=== PATIENT | male | born 1985 | race Caucasian/White ===

== ENCOUNTER 2017-03-14 08:16 | Emergency (ER) | payer OTHER ==
[2017-03-14 08:37] VITALS: BP 149/87
[2017-03-14] MEDS ORDERED: Sodium Chloride 0.9% 2,000 ML IV STA (08:46)
[2017-03-14] MEDS ORDERED: Ondansetron 4 MG/2 ML SDV IVPUSH ONE (08:46)
[2017-03-14] MEDS ORDERED: Sodium Chloride 0.9% 10 ML Syringe FLUSH PRN (08:46)
[2017-03-14] MEDS ORDERED: HYDROmorphone 0.5 MG/0.5 ML Syringe IVPUSH ONE (08:47)
--- NOTE | 2017-03-14 08:53 | EDM.PDOC ---
ED HPI GI/ABDOMINAL - General Chief Complaint: Gastrointestinal Problem Stated Complaint: VOMITING/POSS FOOD POISONING Time Seen by Provider: 03/14/17 08:29 Source of Information: Reports: Patient History Limitations: Reports: No limitations - History of Present Illness INITIAL COMMENTS - FREE TEXT/NARRATIVE: The patient presents with nausea, vomiting and upper abdominal pain. This all started last night while eating and it has kept him up all night. The pain is in the upper abdomen. He has no diarrhea. He has no fever but he has chills. He denies chest pain and shortness of breath. He has no dysuria. He still has his gallbladder and appendix. He may have eaten some bad food. 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 Denies: out of country travel Associated Symptoms: Reports: fever/chills, loss of appetite, nausea/vomiting. Denies: diarrhea - Related Data Allergies/ADRs: Allergies Allergy/AdvReac Type Severity Reaction Status Date / Time No Known Allergies Allergy Verified 03/14/17 08:31 Home Meds: Home Meds Ondansetron [Zofran ODT] 4 mg PO Q6H PRN #20 tab.dis 03/14/17 [Rx] Past Medical History - Past Health History Medical/Surgical History: Denies Medical/Surgical History - Past Surgical History HEENT Surgical History: Reports: Tonsillectomy Musculoskeletal Surgical History: Reports: Other (see below) Other Musculoskeletal Surgeries/Procedures:: ACL repair Social & Family History - Tobacco Use Smoking Status *Q: Never Smoker - Recreational Drug Use Recreational Drug Use: No ED ROS GENERAL - Review of Systems Review Of Systems: See Below Constitutional: Reports: chills. Denies: fever HEENT: Reports: No symptoms Respiratory: Reports: No Symptoms Cardiovascular: Reports: No symptoms Endocrine: Reports: no symptoms GI/Abdominal: Reports: Abdominal pain, Nausea, Vomiting. Denies: Diarrhea : Reports: no symptoms Musculoskeletal: Reports: no symptoms Skin: Reports: no symptoms ED EXAM, GI/ABD - Physical Exam Exam: See Below Exam Limited By: No limitations General Appearance: alert, no apparent distress Ears: normal external exam Nose: normal inspection Head: atraumatic, normocephalic Neck: normal inspection Respiratory/Chest: no respiratory distress, lungs clear, normal breath sounds Cardiovascular: regular rate, rhythm, no edema, no murmur GI/Abdominal: soft, no organomegaly, no mass, tenderness (Mild to moderate tenderness to the upper abdomen) Extremities: normal inspection Course - Vital Signs Last Recorded V/S: Last Vital Signs Temp 98.5 F 03/14/17 08:31 Pulse 68 03/14/17 08:31 Resp 18 03/14/17 08:31 BP 149/87 H 03/14/17 08:31 Pulse Ox 100 03/14/17 08:31 Orthostatic Blood Pressure [ 171/105 Standing] Orthostatic Blood Pressure [ 149/87 Supine] - Orders/Labs/Meds Orders: Active Orders 24 hr Category Date Time Status Peripheral IV Care [RC] . DIRECTED Care 03/14/17 08:47 Active UA W/MICROSCOPIC [URIN] Stat Lab 03/14/17 08:46 Uncollected Sodium Chloride 0.9% [Saline Flush] Med 03/14/17 08:46 Active 10 ml FLUSH ASDIRECTED PRN ED Antiemetic Medication Reflex [OM.PC] Stat Oth 03/14/17 08:47 Ordered Peripheral IV Insertion Adult [OM.PC] Stat Oth 03/14/17 08:46 Ordered Medication Orders Sodium Chloride (Saline Flush) 10 ml FLUSH ASDIRECTED PRN PRN Reason: Keep Vein Open Last Admin: 03/14/17 09:01 Dose: 10 ml Labs: Laboratory Tests 03/14/17 03/14/17 Range/Units 08:40 08:40 WBC 11.55 H (4.23-9.07) K/mm3 RBC 5.23 (4.63-6.08) M/mm3 Hgb 15.6 (13.7-17.5) gm/L Hct 45.3 (40.1-51.0) % MCV 86.6 (79.0-92.2) fl MCH 29.8 (25.7-32.2) pg MCHC 34.4 (32.2-35.5) g/dl RDW Std Deviation 40.5 (35.1-43.9) fL Plt Count 232 (163-337) K/mm3 MPV 9.2 L (9.4-12.3) fl Neut % (Auto) 89.2 H (34.0-67.9) % Lymph % (Auto) 5.9 L (21.8-53.1) % [place] % (Auto) 4.6 L (5.3-12.2) % Eos % (Auto) 0 L (0.8-7.0) Baso % (Auto) 0.1 (0.1-1.2) % Neut # (Auto) 10.31 H (1.78-5.38) K/mm3 Lymph # (Auto) 0.68 L (1.32-3.57) K/mm3 [place] # (Auto) 0.53 (0.30-0.82) K/mm3 Eos # (Auto) 0.00 L (0.04-0.54) K/mm3 Baso # (Auto) 0.01 (0.01-0.08) K/mm3 Manual Slide Review Abnormal smear Sodium 136 (136-145) mEq/L Potassium 3.7 (3.5-5.1) mEq/L Chloride 98 (98-107) mEq/L Carbon Dioxide 24 (21-32) mEq/L Anion Gap 17.7 H (5-15) BUN 12 (7-18) mg/dL Creatinine 1.5 H (0.7-1.3) mg/dL Est Cr Clr Drug Dosing 83.91 mL/min Estimated GFR (MDRD) 55 (>60) mL/min BUN/Creatinine Ratio 8.0 L (14-18) Glucose 160 H (74-106) mg/dL Calcium 9.5 (8.5-10.1) mg/dL Total Bilirubin 0.8 (0.2-1.0) mg/dL AST 19 (15-37) U/L ALT 42 (16-63) U/L Alkaline Phosphatase 86 (46-116) U/L Total Protein 8.4 H (6.4-8.2) g/dl Albumin 4.7 (3.4-5.0) g/dl Globulin 3.7 gm/dL Albumin/Globulin Ratio 1.3 (1-2) Lipase 121 (73-393) U/L Meds: Medications Generic Name Dose Route Start Last Admin Trade Name Freq PRN Reason Stop Dose Admin Sodium Chloride 10 ml 03/14/17 08:46 03/14/17 09:01 Saline Flush FLUSH 10 ml ASDIRECTED PRN Administration Keep Vein Open Discontinued Medications Generic Name Dose Route Start Last Admin Trade Name Remigio PRN Reason Stop Dose Admin Hydromorphone HCl 0.5 mg 03/14/17 08:47 03/14/17 09:00 Dilaudid IVPUSH 03/14/17 08:48 0.5 mg ONETIME ONE Administration Sodium Chloride 2,000 mls @ 1,000 mls/hr 03/14/17 08:46 03/14/17 09:00 Normal Saline IV 03/14/17 10:45 1,000 mls/hr .BOLUS STA Administration Ondansetron HCl 4 mg 03/14/17 08:46 03/14/17 09:00 Zofran IVPUSH 03/14/17 08:47 4 mg ONETIME ONE Administration - Re-Assessments/Exams Free Text/Narrative Re-Assessment/Exam: 03/14/17 08:53 I ordered an IV 2L bolus, zofran 4mg IV and dilaudid 0.5mg IV. I will get labs and a UA. 03/14/17 12:00 His WBC was elevated at 11.55. His anion gap is elevated at 17.7. His creatinine is elevated at 1.5. His glucose is elevated at 160. His lipase is negative. He feels much better after the 2L bolus. He has no pain now. Departure - Departure Time of Disposition: 12:05 Disposition: Home, Self-Care 01 Condition: good Clinical Impression: Vomiting, Gastroenteritis Prescriptions: Ondansetron [Zofran ODT] 4 mg PO Q6H PRN #20 tab.dis PRN Reason: Nausea/Vomiting Forms: ED Department Discharge Additional Instructions: Drink plenty of fluids such as water, gatorade and powerade. Avoid juices and soda. They can cause dairrhea. Try some bland food later such as crackers later in the day and advance you diet as tolerated. Avoid dairy products for a couple days. Take the zofran every 6 hours as needed for nausea and vomiting. Please return if your abdominal pain is worse or if it travels to your right lower abdomen where your appendix is or if you cannot keep any water down. - My Orders Last 24 Hours: My Active Orders 03/14/17 08:46 UA W/MICROSCOPIC [URIN] Stat Sodium Chloride 0.9% [Saline Flush] 10 ml FLUSH ASDIRECTED PRN Peripheral IV Insertion Adult [OM.PC] Stat 03/14/17 08:47 Peripheral IV Care [RC] . DIRECTED ED Antiemetic Medication Reflex [OM.PC] Stat - Assessment/Plan Last 24 Hours: My Active Orders 03/14/17 08:46 UA W/MICROSCOPIC [URIN] Stat Sodium Chloride 0.9% [Saline Flush] 10 ml FLUSH ASDIRECTED PRN Peripheral IV Insertion Adult [OM.PC] Stat 03/14/17 08:47 Peripheral IV Care [RC] . DIRECTED ED Antiemetic Medication Reflex [OM.PC] Stat
== END 2017-03-14 12:19 | disposition home or self-care (01) ==
LOC: JD.ED 08:16
DX: K52.9 Noninfective gastroenteritis and colitis, unspecified (principal); Z98.890 Other specified postprocedural states
CPT/HCPCS: 36415; 80053; 83690; 85025; 96361; 96374; 96375; 99284; J1170; J2405; J7040; J7050

== ENCOUNTER 2017-03-15 10:29 | Emergency (ER) | payer OTHER ==
[2017-03-15] MEDS ORDERED: Sodium Chloride 0.9% 1,000 ML IV STA (10:56)
[2017-03-15] MEDS ORDERED: Ondansetron 4 MG/2 ML SDV IVPUSH ONE ×2 (10:56→12:42)
[2017-03-15] MEDS ORDERED: HYDROmorphone 1 MG/ML Syringe IVPUSH ONE (10:57)
[2017-03-15] MEDS ORDERED: Famotidine 20 MG/2 ML SDV IVPUSH ONE (10:58)
[2017-03-15] MEDS: Sodium Chloride 0.9% 10 ML Syringe FLUSH PRN ×2 (11:09→13:24)
--- NOTE | 2017-03-15 11:33 | EDM.PDOC ---
ED HPI GI/ABDOMINAL - General Chief Complaint: Abdominal Pain Stated Complaint: VOMITING,WAS HERE YESTERDAY Time Seen by Provider: 03/15/17 10:51 Source of Information: Reports: Patient History Limitations: Reports: No limitations - History of Present Illness INITIAL COMMENTS - FREE TEXT/NARRATIVE: The patient presents with upper abdominal pain, nausea and vomiting. The patient was evaluated here for the same and he was given 2Ls of fluid, zofran and dilaudid. He felt much better and his labs looked good. He was discharged and he was doing good until this morning when he tried to eat something and all the symptoms came back. The pain is still in the upper abdomen. He has no diarrhea. He did have some chest pain that is described as a pressure. He has no shortness of breath. Timing/Duration: Reports: Day(s): (2) Location: other (Upper) Quality: Reports: cramping Severity: moderate Context: Denies: sick contact, bad/questionable food, out of country travel, recent surgery, recent trauma, lifting, activity/exercise Associated Symptoms: Reports: chest pain, nausea/vomiting. Denies: constipation , diarrhea, fever/chills - Related Data Allergies/ADRs: Allergies Allergy/AdvReac Type Severity Reaction Status Date / Time No Known Allergies Allergy Verified 03/14/17 08:31 Home Meds: Home Meds Ondansetron [Zofran ODT] 4 mg PO Q6H PRN #20 tab.dis 03/14/17 [Rx] LORazepam 1 mg PO Q8HR PRN #10 tablet 03/15/17 [Rx] Ondansetron [Zofran ODT] 4 mg PO Q6H PRN #20 tab.dis 03/15/17 [Rx] Past Medical History - Past Health History Medical/Surgical History: Denies Medical/Surgical History - Past Surgical History HEENT Surgical History: Reports: Tonsillectomy Musculoskeletal Surgical History: Reports: Other (see below) Other Musculoskeletal Surgeries/Procedures:: ACL repair Social & Family History - Tobacco Use Smoking Status *Q: Unknown Ever Smoked - Recreational Drug Use Recreational Drug Use: No ED ROS GENERAL - Review of Systems Review Of Systems: See Below Constitutional: Reports: no symptoms HEENT: Reports: No symptoms Respiratory: Reports: No Symptoms Cardiovascular: Reports: No symptoms Endocrine: Reports: no symptoms GI/Abdominal: Reports: Abdominal pain, Nausea, Vomiting. Denies: Diarrhea : Reports: no symptoms Musculoskeletal: Reports: no symptoms Skin: Reports: no symptoms Neurological: Reports: No Symptoms ED EXAM, GI/ABD - Physical Exam Exam: See Below Exam Limited By: No limitations General Appearance: alert, no apparent distress Ears: normal external exam Nose: normal inspection Head: atraumatic, normocephalic Neck: normal inspection Respiratory/Chest: no respiratory distress, lungs clear, normal breath sounds Cardiovascular: regular rate, rhythm, no edema, no murmur GI/Abdominal: soft, no organomegaly, no mass, tenderness (Mild to moderate tenderness to the upper abdomen) Extremities: normal inspection Course - Vital Signs Last Recorded V/S: Last Vital Signs Temp 98.3 F 03/15/17 10:42 Pulse 59 L 03/15/17 12:29 Resp 18 03/15/17 12:29 BP 162/83 H 03/15/17 12:29 Pulse Ox 100 03/15/17 12:29 Orthostatic Blood Pressure [ 169/113 Standing] Orthostatic Blood Pressure [ 178/107 Supine] - Orders/Labs/Meds Orders: Active Orders 24 hr Category Date Time Status EKG 12 Lead [EKG Documentation Completion] [RC] STAT Care 03/15/17 10:58 Active Peripheral IV Care [RC] . DIRECTED Care 03/15/17 10:56 Active UA W/MICROSCOPIC [URIN] Stat Lab 03/15/17 13:36 Results Sodium Chloride 0.9% [Normal Saline] 1,000 ml Med 03/15/17 14:15 Active IV ASDIRECTED Sodium Chloride 0.9% [Saline Flush] Med 03/15/17 10:56 Active 10 ml FLUSH ASDIRECTED PRN ED Antiemetic Medication Reflex [OM.PC] Stat Oth 03/15/17 10:57 Ordered Peripheral IV Insertion Adult [OM.PC] Stat Oth 03/15/17 10:56 Ordered Medication Orders Sodium Chloride (Normal Saline) 1,000 mls @ 150 mls/hr IV ASDIRECTED HALEY Sodium Chloride (Saline Flush) 10 ml FLUSH ASDIRECTED PRN PRN Reason: Keep Vein Open Last Admin: 03/15/17 13:24 Dose: 10 ml Admin: 03/15/17 11:09 Dose: 10 ml Labs: Laboratory Tests 0403/15/17 03/15/17 Range/Units 11:00 11:00 13:36 WBC 11.38 H (4.23-9.07) K/mm3 RBC 5.46 (4.63-6.08) M/mm3 Hgb 16.2 (13.7-17.5) gm/L Hct 47.6 (40.1-51.0) % MCV 87.2 (79.0-92.2) fl MCH 29.7 (25.7-32.2) pg MCHC 34.0 (32.2-35.5) g/dl RDW Std Deviation 42.5 (35.1-43.9) fL Plt Count 218 (163-337) K/mm3 MPV 9.4 (9.4-12.3) fl Neut % (Auto) 80.3 H (34.0-67.9) % Lymph % (Auto) 9.9 L (21.8-53.1) % [place] % (Auto) 9.1 (5.3-12.2) % Eos % (Auto) 0.2 L (0.8-7.0) Baso % (Auto) 0.3 (0.1-1.2) % Neut # (Auto) 9.15 H (1.78-5.38) K/mm3 Lymph # (Auto) 1.13 L (1.32-3.57) K/mm3 [place] # (Auto) 1.03 H (0.30-0.82) K/mm3 Eos # (Auto) 0.02 L (0.04-0.54) K/mm3 Baso # (Auto) 0.03 (0.01-0.08) K/mm3 Manual Slide Review Normal smear Sodium 137 (136-145) mEq/L Potassium 4.0 (3.5-5.1) mEq/L Chloride 100 (98-107) mEq/L Carbon Dioxide 24 (21-32) mEq/L Anion Gap 17.0 H (5-15) BUN 12 (7-18) mg/dL Creatinine 1.4 H (0.7-1.3) mg/dL Est Cr Clr Drug Dosing TNP Estimated GFR (MDRD) 60 (>60) mL/min BUN/Creatinine Ratio 8.6 L (14-18) Glucose 149 H (74-106) mg/dL Calcium 9.7 (8.5-10.1) mg/dL Total Bilirubin 0.8 (0.2-1.0) mg/dL AST 21 (15-37) U/L ALT 37 (16-63) U/L Alkaline Phosphatase 81 (46-116) U/L Troponin I < 0.017 (0.00-0.056) ng/mL Total Protein 8.1 (6.4-8.2) g/dl Albumin 4.6 (3.4-5.0) g/dl Globulin 3.5 gm/dL Albumin/Globulin Ratio 1.3 (1-2) Lipase 102 (73-393) U/L Urine Color Yellow (Yellow) Urine Appearance Clear (Clear) Urine pH 6.5 (5.0-8.0) Ur Specific [place] 1.015 (1.005-1.030) Urine Protein Negative (Negative) Urine Glucose (UA) Negative (Negative) Urine Ketones 1+ H (Negative) Urine Occult Blood Negative (Negative) Urine Nitrite Negative (Negative) Urine Bilirubin Negative (Negative) Urine Urobilinogen 0.2 (0.2-1.0) Ur Leukocyte Esterase Negative (Negative) Meds: Medications Generic Name Dose Route Start Last Admin Trade Name Freq PRN Reason Stop Dose Admin Sodium Chloride 1,000 mls @ 150 mls/hr 03/15/17 14:15 Normal Saline IV ASDIRECTED HALEY Sodium Chloride 10 ml 03/15/17 10:56 03/15/17 13:24 Saline Flush FLUSH 10 ml ASDIRECTED PRN Administration Keep Vein Open Discontinued Medications Generic Name Dose Route Start Last Admin Trade Name Freq PRN Reason Stop Dose Admin Diatrizoate Meglum/Diatrizoate Sod 90 ml 03/15/17 12:57 03/15/17 13:24 Gastrografin 37% PO 03/15/17 12:58 90 ml ONETIME ONE Administration Famotidine 20 mg 03/15/17 10:58 03/15/17 11:07 Pepcid IVPUSH 03/15/17 10:59 20 mg ONETIME ONE Administration Hydromorphone HCl 1 mg 03/15/17 10:57 03/15/17 11:08 Dilaudid IVPUSH 03/15/17 10:58 1 mg ONETIME ONE Administration Hydromorphone HCl 0.5 mg 03/15/17 14:03 03/15/17 14:09 Dilaudid IVPUSH 03/15/17 14:04 0.5 mg ONETIME ONE Administration Sodium Chloride 1,000 mls @ 1,000 mls/hr 03/15/17 10:56 03/15/17 11:08 Normal Saline IV 03/15/17 11:55 1,000 mls/hr .BOLUS STA Administration Sodium Chloride 1,000 mls @ 999 mls/hr 03/15/17 12:10 03/15/17 13:04 Normal Saline IV 03/15/17 13:10 999 mls/hr ONETIME ONE Administration Iopamidol 100 ml 03/15/17 12:57 03/15/17 13:24 Isovue-370 (76%) IVPUSH 03/15/17 12:58 100 ml ONETIME ONE Administration Lidocaine HCl 5 ml 03/15/17 12:57 03/15/17 14:42 Xylocaine-Mpf 1% INJECT 03/15/17 12:58 Not Given ONETIME ONE Ondansetron HCl 4 mg 03/15/17 10:56 03/15/17 11:07 Zofran IVPUSH 03/15/17 10:57 4 mg ONETIME ONE Administration Ondansetron HCl 4 mg 03/15/17 12:42 03/15/17 12:47 Zofran IVPUSH 03/15/17 12:43 4 mg ONETIME ONE Administration - Re-Assessments/Exams Free Text/Narrative Re-Assessment/Exam: 03/15/17 11:34 I ordered an IV NS 1L bolus, zofran 4mg IV, dilaudid 1mg IV, labs, UA and CT scan of his abdomen and pelvis. 03/15/17 15:48 His WBC was elevated at 11.38. His anion gap is elevated at 17. His creatinine is elevated at 1.4. His glucose is elevated at 149. His troponin is negative. His EKG shows nothing acute. His UA shows no UTI. The CT shows left kidney is smaller than the right kidney with generalized cortical thinning. This finding is likely chronic. Right kidney appears normal. Bilateral contrast excretion is seen with contrast noted within the distal ureters and bladder. No additional abnormality is identified on CT study of the abdomen and pelvis. I gave him another liter of fluid and about 500mls more. His UA shows no UTI. He feels better and would like to go. I will give him some zofran for home. Departure - Departure Time of Disposition: 16:00 Disposition: Home, Self-Care 01 Condition: good Clinical Impression: Vomiting, Gastroenteritis Abdominal pain Qualifiers: Abdominal location: upper abdomen, unspecified Qualified Code(s): R10.10 - Upper abdominal pain, unspecified Prescriptions: LORazepam 1 mg PO Q8HR PRN #10 tablet PRN Reason: Anxiety Ondansetron [Zofran ODT] 4 mg PO Q6H PRN #20 tab.dis PRN Reason: Nausea/Vomiting Forms: ED Department Discharge Additional Instructions: Drink plenty of fluids. Take the zofran 4mg every 6 hours as needed for nausea and vomiting. On CT scan your left kidney was smaller then your right. Follow up with your doctor to check on this. Please return if you have more pain or have more vomiting. - My Orders Last 24 Hours: My Active Orders 03/15/17 10:56 Peripheral IV Care [RC] . DIRECTED Sodium Chloride 0.9% [Saline Flush] 10 ml FLUSH ASDIRECTED PRN Peripheral IV Insertion Adult [OM.PC] Stat 03/15/17 10:57 ED Antiemetic Medication Reflex [OM.PC] Stat 03/15/17 10:58 EKG 12 Lead [EKG Documentation Completion] [RC] STAT 03/15/17 13:36 UA W/MICROSCOPIC [URIN] Stat 03/15/17 14:15 Sodium Chloride 0.9% [Normal Saline] 1,000 ml IV ASDIRECTED - Assessment/Plan Last 24 Hours: My Active Orders 03/15/17 10:56 Peripheral IV Care [RC] . DIRECTED Sodium Chloride 0.9% [Saline Flush] 10 ml FLUSH ASDIRECTED PRN Peripheral IV Insertion Adult [OM.PC] Stat 03/15/17 10:57 ED Antiemetic Medication Reflex [OM.PC] Stat 03/15/17 10:58 EKG 12 Lead [EKG Documentation Completion] [RC] STAT 03/15/17 13:36 UA W/MICROSCOPIC [URIN] Stat 03/15/17 14:15 Sodium Chloride 0.9% [Normal Saline] 1,000 ml IV ASDIRECTED
[2017-03-15] MEDS ORDERED: Sodium Chloride 0.9% 1,000 ML IV ONE (12:10)
[2017-03-15 12:31] VITALS: BP 162/83
[2017-03-15] MEDS ORDERED: Diatrizoate Meglumine/Diatrizoate Sodium 37% 120 ML Bottle PO ONE (12:57)
[2017-03-15] MEDS ORDERED: Iopamidol 755 Mg/ML 100 ML Bottle IVPUSH ONE (12:57)
--- NOTE | 2017-03-15 13:54 | CT ---
CT abdomen and pelvis Technique: Multiple axial sections were obtained from above the dome of the diaphragm inferiorly through the pubic symphysis. Intravenous and oral contrast has been given. Delayed images were also obtained through the bladder. Contrast utilized was 83 mL. Comparison: No previous abdominal imaging. Findings: Visualized lung bases shows nothing acute. Liver shows no focal abnormality. Gallbladder shows no calcified gallstones. Spleen appears within normal limits. Adrenal glands show no nodule. Kidneys show contrast-enhancement without hydronephrosis or mass. Left kidney is smaller than the right kidney with mild generalized cortical thinning which appears to be chronic. Aorta shows no aneurysmal dilatation. Pancreas shows no discrete abnormality. No retroperitoneal adenopathy or mesenteric abnormalities are seen. No pelvic mass or adenopathy is seen. Delayed images shows contrast within the distal ureters and within the bladder. Appendix felt to be seen which appears normal. No bowel dilatation, inflammatory change or free fluid is seen. Bone window settings were reviewed which appear within normal limits for the patient's age. Impression: 1. 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 This finding is likely chronic. Right kidney appears normal. 2. Bilateral contrast excretion is seen with contrast noted within the distal ureters and bladder. 3. No additional abnormality is identified on CT study of the abdomen and pelvis. Diagnostic code #2
[2017-03-15] MEDS ORDERED: HYDROmorphone 0.5 MG/0.5 ML Syringe IVPUSH ONE (14:03)
[2017-03-15] MEDS ORDERED: Sodium Chloride 0.9% 1,000 ML IV SCH (14:15)
== END 2017-03-15 16:13 | disposition home or self-care (01) ==
LOC: JD.ED 10:29
DX: K52.9 Noninfective gastroenteritis and colitis, unspecified (principal)
CPT/HCPCS: 36415; 74177; 80053; 81001; 83690; 84484; 85025; 93005; 96361; 96374; 96375; 96376; 99285; J1170; J2405; J7040; J7050; Q9963; Q9967; 99284